=== PATIENT | female | born 1955 | race Asian ===

== ENCOUNTER 2017-10-02 17:42 | Emergency (ER) | payer MEDICARE, OTHER, MEDICAID ==
--- NOTE | 2017-10-02 19:49 | ER Document Report ---
ED NIH Stroke Scale - NIH Stroke Scale When completed:: Before Alteplase *: 1. NIH scale should be completed with appropriate accompanying assessment tools. *: 2. The NIH should reflect what the patient is capable of doing and should not be coached by the clinician. 1a. Level of Consciousness: 0=Alert;keenly responsive -: 1=Drowsy -: 2=Obtunded -: 3=Coma/unresponsive or reflex to noxious stimuli. 1a. Responses: 0 1b. Orientation Questions: a. What month is it? -: b. How old are you? -: 0=Answers both questions correctly. -: 1=Answers one question correctly or patient is intubated or has orotracheal trauma. -: 2=Answers neither question correctly. 1b. Responses: 0 1c. Response to commands: a. Open and close eyes? 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 -: Credit is given despite weakness. Demonstration of task is permitted. Substitute command if hands cannot be used. -: 0=Performs both tasks correctly -: 1=Performs one task correctly -: 2=Performs neither task correctly 1c. Responses: 0 2. Gaze: Establish eye contact and instruct patient to "Follow my finger" -: 0=Normal -: 1=Partial gaze palsy. Gaze is abnormal in one or both eyes, but where forced deviation or total gaze paresis is not present. -: 2=Forced deviation or total gaze paresis. 2. Responses: 0 3. Visual Em: Sees fingers in all four quadrants. -: 0=No visual loss. -: 1=Partial hemianopsia. -: 2=Complete hemianopsia. -: 3=Bilateral hemianopsia (including Cortical blindness) 3. Responses: 0 4. Facial Movement: Instruct patient to: -: a. Show me your teeth -: b. Raise your eyebrows -: c. Close your eyes -: d. Smile -: 0=Normal symmetrical movement -: 1=Minor paralysis (flattened nasolabial fold, asymmetry on smiling). -: 2=Partial paralysis (total or near total paralysis of lower face). -: 3=Complete paralysis of upper and lower face 4. Responses: 0 5. Motor functions (left arm): Alternate sides and extend each arm with palms down (90 degrees if sitting or 45 degrees for supine). -: 0=No drift;limb holds for full 10 seconds. -: 1=Drift; limb holds but drifts down before full 10 seconds, but does not hit bed. -: 2=Some effort against gravity; limb cannot get to or maintain position. -: 3=No effort against gravity; limb falls. -: 4=No movement. -: UN=Amputation, joint fusion, explain in comments. 5. Responses (left arm): 0 5. Motor Functions (right arm): Alternate sides and extend each arm with palms down (90 degrees if sitting or 45 degrees for supine). -: 0=No drift;limb holds for full 10 seconds. -: 1=Drift; limb holds but drifts down before full 10 seconds, but does not hit bed. -: 2=Some effort against gravity; limb cannot get to or maintain position. -: 3=No effort against gravity; limb falls. -: 4=No movement. -: UN=Amputation, joint fusion, explain in comments. 5. Responses (right arm): 0 6. Motor Functions (left leg): With patient lying supine, alternate sides and extend each leg (30 degrees always while supine). -: 0=No drift, leg holds position for full 5 seconds -: 1=Drift; leg falls before full 5 seconds but does not hit bed. -: 2=Some effort against gravity, leg falls to bed but some effort against gravity. -: 3=No effort against gravity, leg falls to bed immediately. -: 4=No movement. -: UN=Amputation, joint fusion; explain in comments. 6. Responses (left leg): 0 6. Motor Functions (right leg): With patient lying supine, alternate sides and extend each leg (30 degrees always while supine). -: 0=No drift, leg holds position for full 5 seconds -: 1=Drift; leg falls before full 5 seconds but does not hit bed. -: 2=Some effort against gravity, leg falls to bed but some effort against gravity. -: 3=No effort against gravity, leg falls to bed immediately. -: 4=No movement. -: UN=Amputation, joint fusion; explain in comments. 6. Responses (right leg): 0 7. Limb Ataxia: With eyes open instruct patient to: -: a. "Touch your finger to your nose". -: b. "Touch your heel to your love" -: 0=Absent -: 1=Present in one limb. -: 2=Present in two limbs. -: UN=Amputation or joint fusion; explain in comments. 7. Responses: 0 8. Sensory: Test sensation using pinprick or noxious stimuli. Test as many body parts as possible. -: 0=Normal;no sensory loss -: 1=Mile to moderate sensory loss (patient feels pin prick but is less sharp on affected side). -: 2=Severe or total sensory loss. 8. Responses: 1 9. Best Language: Instruct patient to: -: a. "Describe what you see in this picture." -: b. "Name the items in this picture." -: c. "Read these sentences." -: 0=No aphasia, normal -: 1=Mild to moderate aphasia. -: 2=Severe aphasia -: 3=Mute, global aphasia, no usable speech or auditory comprehension. 9. Responses: 0 10. Articulation, Dysarthia: Instruct patient to: -: "Read these words" or "Repeat these words" -: 0=Normal -: 1=Mild to moderate; patient may slur some words but can be understood without difficulty. -: 2=Severe; patients speech so slurred as to be unintelligible in the absence of dysphasia. -: UN=Intubated or other physical barrier, explain in comments. 10. Responses: 0 11. Extinction or inattention: 0=No abnormality -: 1= Visual, tactile, auditory, spatial, or personal inattention or extinction to bilateral simulation in one or the sensory modalities. -: 2=Profound isaac-inattention or isaac-inattention to more than one modality; does not recognize own hand. 11. Responses: 0 Total Score: 1
--- NOTE | 2017-10-02 19:52 | ER Document Report ---
ED Neuro Symptoms/Deficit - General Chief Complaint: Leg Pain Stated Complaint: BODY NUMBNESS/CHEST PAIN Time Seen by Provider: 10/02/17 19:45 Notes: 62-year-old female presents with left-sided numbness and sharp chest pain starting 2 weeks ago. She has had this fairly consistent on and off for the last 2 weeks. She has spoke with her doctor. Patient is not a very good historian and is all over the board when trying to pin her down on some of his questions she complains of left face numbness left arm numbness left leg numbness but states it is due to her sciatic nerve. She also is a sharp stabbing chest pain but denies shortness of breath. TRAVEL OUTSIDE OF THE [place] IN LAST 30 DAYS: No - Related Data Allergies/Adverse Reactions: acetaminophen [From Vicodin] Allergy (Verified 10/02/17 19:43) clams Allergy (Verified 10/02/17 19:44) hydrocodone [From Vicodin] Allergy (Verified 10/02/17 19:43) propoxyphene [From Darvocet-N] Allergy (Verified 10/02/17 19:43) Past Medical History - Social History Smoking Status: Unknown if Ever Smoked Family History: None Physical Exam - Vital signs Vitals: Temp Pulse Resp BP Pulse Ox 98.6 F 84 18 133/65 H 98 10/02/17 18:01 10/02/17 18:01 10/02/17 18:01 10/02/17 18:01 10/02/17 18:01 - Neurological Neuro grossly intact: Yes Cognition: Normal Orientation: AAOx4 [place] Coma Scale Eye Opening: Spontaneous [place] Coma Scale Verbal: Oriented [place] Coma Scale Motor: Obeys Commands [place] Coma Scale Total: 15 Speech: Normal Cranial nerves: Normal Cerebellar coordination: Normal Motor strength normal: LUE, RUE, LLE, RLE 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 Also complains of sharp chest pain. Will do a full stroke and chest pain workup. Again this is been going on for 2 weeks she is not a candidate for TPA due to timing. She is an extraordinarily poor historian and hard to focus with her complaints. - Vital Signs Vital signs: Temp Pulse Resp BP Pulse Ox 98.6 F 84 18 133/65 H 98 10/02/17 18:01 10/02/17 18:01 10/02/17 18:01 10/02/17 18:01 10/02/17 18:01
--- NOTE | 2017-10-02 20:31 | EKG REPORT ---
SEVERITY:- ABNORMAL ECG - SINUS RHYTHM RBBB AND LAFB : Confirmed by: Jason Preston MD 02-Oct-2017 20:30:35
--- NOTE | 2017-10-02 21:14 | RADIOLOGY REPORT (SQ) ---
EXAM DESCRIPTION: CHEST SINGLE VIEW COMPLETED DATE/TIME: 10/02/2017 9:01 pm REASON FOR STUDY: left side numbness COMPARISON: None. EXAM PARAMETERS: NUMBER OF VIEWS: One view. TECHNIQUE: Single frontal radiographic view of the chest acquired. RADIATION DOSE: NA LIMITATIONS: None. FINDINGS: LUNGS AND PLEURA: No opacities, masses or pneumothorax. No pleural effusion. MEDIASTINUM AND HILAR STRUCTURES: No masses. Contour normal. HEART AND VASCULAR STRUCTURES: Heart normal in size. Normal vasculature. BONES: No acute findings. HARDWARE: None in the chest. OTHER: No other significant finding. IMPRESSION: NO ACUTE RADIOGRAPHIC FINDING IN THE CHEST. TECHNICAL DOCUMENTATION: JOB ID: [id number] [employer]- All Rights Reserved Reading location - IP/workstation name: [email or web address]
[2017-10-02 21:17] LABS: APPEARANCE,URINE CLEAR; BILIRUBIN,URINE NEGATIVE (NEGATIVE); COLOR,URINE STRAW; GLUCOSE, URINE NEGATIVE (NEGATIVE); KETONES,URINE NEGATIVE (NEGATIVE); LEUKOCYTE ESTERASE,URINE NEGATIVE (NEGATIVE); NITRITE,URINE NEGATIVE (NEGATIVE); PROTEIN,URINE NEGATIVE (NEGATIVE); URINE SPECIFIC GRAVITY 1.008; UROBILINOGEN,URINE NEGATIVE mg/dL (<2.0)
--- NOTE | 2017-10-02 21:52 | ER Document Report ---
ED General - General Chief Complaint: Leg Pain Stated Complaint: BODY NUMBNESS/CHEST PAIN Time Seen by Provider: 10/02/17 19:45 Notes: Patient is a 62-year-old female with a past medical history of hypertension who presents with 3 weeks of intermittent left-sided numbness that has become constant over the last 3 days. She describes this as a sensation of numbness and loss of sensation most prominent in her left lower extremity. Nothing seems to improve or worsen her symptoms. She does note that the loss of sensation has made ambulation difficult. She denies any focal weakness, headache, neck pain, changes in vision, difficulty speaking, vomiting, or confusion. She denies any history of similar symptoms in the past. She has not seen her general doctor regarding today's concerns that she is currently visiting from out of town. The patient also reports that she has had intermittent stabbing chest discomfort over the past several weeks. No pain present at the time of my assessment. She notes that this is intermittent, stabbing pain that comes for several seconds and then spontaneously resolves. Nothing seemed to trigger the pain. She denies any history of similar symptoms in the past. She denies any cardiac history. Denies any associated shortness of breath. No history of DVT or pulmonary embolus. TRAVEL OUTSIDE OF THE [place] IN LAST 30 DAYS: No - Related Data Allergies/Adverse Reactions: acetaminophen [From Vicodin] Allergy (Verified 10/02/17 19:43) clams Allergy (Verified 10/02/17 19:44) hydrocodone [From Vicodin] Allergy (Verified 10/02/17 19:43) propoxyphene [From Darvocet-N] Allergy (Verified 10/02/17 19:43) Past Medical History - General Information source: Patient - Social History Smoking Status: Never Smoker Frequency of alcohol use: None Drug Abuse: None Lives with: Family Family History: Reviewed & Not Pertinent Patient has suicidal ideation: No Patient has homicidal ideation: No Endocrine Medical History: Reports: Hx Diabetes Mellitus Type 2 Renal/ Medical History: Denies: Hx Peritoneal Dialysis Past Surgical History: Reports: Hx Orthopedic Surgery - carpal tunnel Review of Systems - Review of Systems Notes: Constitutional: Negative for fever. HENT: Negative for sore throat. Eyes: Negative for visual changes. Cardiovascular: Positive for chest pain. Respiratory: Negative for shortness of breath. Gastrointestinal: Negative for abdominal pain, vomiting or diarrhea. Genitourinary: Negative for dysuria. Musculoskeletal: Negative for back pain. Skin: Negative for rash. Neurological: Positive for left-sided numbness 10 point ROS negative except as marked above and in HPI. Physical Exam - Vital signs Vitals: Temp Pulse Resp BP Pulse Ox 98.6 F 84 18 133/65 H 98 10/02/17 18:01 10/02/17 18:01 10/02/17 18:01 10/02/17 18:01 10/02/17 18:01 Interpretation: Normal Notes: PHYSICAL EXAMINATION: GENERAL: Well-appearing, well-nourished and in no acute distress. HEAD: Atraumatic, normocephalic. EYES: Pupils equal round and reactive to light, extraocular movements intact, sclera anicteric, conjunctiva are normal. ENT: nares patent, oropharynx clear without exudates. Moist mucous membranes. NECK: Normal range of motion, supple without lymphadenopathy LUNGS: Breath sounds clear to auscultation bilaterally and equal. No wheezes rales or rhonchi. HEART: Regular rate and rhythm without murmurs ABDOMEN: Soft, nontender, normoactive bowel sounds. No guarding, no rebound. No masses appreciated. EXTREMITIES: Normal range of motion, no pitting or edema. No cyanosis. NEUROLOGICAL: Face symmetric. Tongue protrudes midline. Extraocular motions intact. Pupils are 2 mm and equally reactive. Normal speech, normal gait. 5 out of 5 strength in both the distal and proximal upper and lower extremities bilaterally. Sensation is grossly intact throughout although slightly diminished in the left lower extremity. Finger to nose testing normal. Pronator drift normal. PSYCH: Normal mood, normal affect. SKIN: Warm, Dry, normal turgor, no rashes or lesions noted. Course - Re-evaluation Re-evalutation: 10/02/17 21:50 Patient presents complaining of left-sided numbness for the past 3 days that has become to a point of intensity that it makes walking difficult. Full neurologic exam at the bedside is without any significant deficits although the patient does have some apparent sensory loss in her left lower extremity. She has no strength deficits. No ataxia. No aphasia or dysarthria. Will obtain MRI of the head to further evaluate for possible subacute stroke. The patient was also complaining of some intermittent stabbing chest discomfort that has been going on for the past several days. She denies any chest pain at the time of my assessment. Low clinical suspicion for ACS given clinical history, exam, EKG without ST elevations or depressions, and negative initial troponin. HEART score less than or equal to 3. PE also seems unlikely given clinical history, absence of tachycardia or dyspnea. CXR without evidence of pneumothorax or pneumonia. No widened mediastinum. Aortic dissection also seems unlikely given history, symmetric pulses, CXR, and vitals. 10/03/17 00:19 MRI of the head does show a meningioma between the frontal lobes as well as a prior right basal ganglia infarct. The patient has been having intermittent symptoms for 3 weeks that became constant in the last several days it is possible that the right basal ganglia infarct could be triggering some of her left-sided numbness. I have informed the patient and her daughter about the MRI findings and have encouraged them to follow-up with [facility] primary care doctor and consideration of neurosurgical follow-up. Labs including troponin are otherwise unremarkable. At this time will discharge with return precautions and follow-up recommendations. Verbal discharge instructions given a the bedside and opportunity for questions given. Medication warnings reviewed. Patient is in agreement with this plan and has verbalized understanding of return precautions and the need for primary care follow-up in the next 24-72 hours. - Vital Signs Vital signs: Temp Pulse Resp BP Pulse Ox 98.3 F 79 19 133/74 H 100 10/03/17 01:01 10/02/17 19:50 10/03/17 01:01 10/03/17 01:01 10/03/17 01:01 - Laboratory Result Diagrams: 10/02/17 21:38 10/02/17 21:38 Laboratory results interpreted by me: 10/02/17 10/02/17 20:21 21:38 Potassium 5.1 H Glucose 156 H AST 61 H Total Protein 8.3 H Urine Ascorbic Acid 40 H - Diagnostic Test Radiology reviewed: Image reviewed, Reports reviewed Radiology results interpreted by me: 10/03/17 00:23 Chest x-ray: No acute infiltrate or pneumothorax Discharge - Discharge Clinical Impression: Left sided numbness, Intermittent chest pain Condition: Good Disposition: HOME, SELF-CARE Additional Instructions: You were seen today for left-sided numbness. An MRI of your head shows an area of an old stroke but also does show what appears to be a meningioma, a generally benign tumor between your 2 frontal lobes. This could also be contributing to some of your symptoms. The remainder of your labs including markers for your heart are normal. I would recommend that you follow-up closely with your primary care physician within the next 24-48 hours and request a neurosurgical consultation. Please return to the emergency department immediately if you develop a severe headache, weakness, worsening of your numbness, difficulty walking, vomiting, confusion, recurrent chest pain, fever of greater than 100.4 F, or any other symptoms that are worrisome to you.
[2017-10-02 21:54] LABS: ABSOLUTE BASOPHILS # (AUTO) 0.1 10^3/uL (0.0-0.2); ABSOLUTE EOSINOPHILS # (AUTO) 0.1 10^3/uL (0.0-0.6); ABSOLUTE LYMPHOCYTES (AUTO) 2.1 10^3/uL (0.5-4.7); ABSOLUTE MONOCYTES (AUTO) 0.6 10^3/uL (0.1-1.4); ABSOLUTE NEUT (AUTO) 4.9 10^3/uL (1.7-8.2); BASOPHILS % (AUTO) 0.8 % (0-2); EOSINOPHILS % (AUTO) 1.2 % (0-6); HEMATOCRIT 39.2 % (36.0-47.0); HEMOGLOBIN 13.3 g/dL (12.0-15.5); LYMPHOCYTES % (AUTO) 27.1 % (13-45); MEAN CORPUSCULAR HEMOGLOBIN 28.5 pg (27.0-33.4); MEAN CORPUSCULAR HGB CONC 33.9 g/dL (32.0-36.0); MEAN CORPUSCULAR VOLUME 84 fl (80-97); MONOCYTES % (AUTO) 7.3 % (3-13); PLATELET COUNT 220 10^3/uL (150-450); RED BLOOD COUNT 4.66 10^6/uL (3.72-5.28); RED CELL DISTRIBUTION WIDTH 12.1 % (11.5-14.0); SEGMENTED NEUTROPHILS % (AUTO) 63.6 % (42-78); TOTAL CELLS COUNTED % (AUTO) 100 %; WHITE BLOOD COUNT 7.8 10^3/uL (4.0-10.5)
[2017-10-02 22:08] LABS: ALANINE AMINOTRANSFERASE 24 U/L (9-52); ALBUMIN 4.5 g/dL (3.5-5.0); ALKALINE PHOSPHATASE 79 U/L (38-126); ANION GAP 13 (5-19); ASPARTATE AMINO TRANSFERASE 61 U/L (14-36); BILIRUBIN,DIRECT 0.4 mg/dL (0.0-0.4); BILIRUBIN,TOTAL 0.5 mg/dL (0.2-1.3); BLOOD UREA NITROGEN 15 mg/dL (7-20); CALCIUM 9.8 mg/dL (8.4-10.2); CARBON DIOXIDE 26 mmol/L (22-30); CHLORIDE 104 mmol/L (98-107); GLUCOSE 156 mg/dL (75-110); POTASSIUM 5.1 mmol/L (3.6-5.0); SODIUM 142.6 mmol/L (137-145); TOTAL PROTEIN 8.3 g/dL (6.3-8.2)
--- NOTE | 2017-10-02 23:50 | RADIOLOGY REPORT (SQ) ---
EXAM DESCRIPTION: CT HEAD WITHOUT IV CONTRAST COMPLETED DATE/TME: 10/02/2017 20:45 CLINICAL HISTORY: 62 years, Female, eval cva COMPARISON: EXAM DESCRIPTION: CLINICAL HISTORY: eval cva / stroke COMPARISON: None available. TECHNIQUE: Multiplanar multisequence imaging of the brain including the intravenous administration of contrast. FINDINGS: There is a fairly homogeneously enhancing apparently extra-axial dural based mass lesion displacing the bilateral medial inferior frontal lobe parenchyma superiorly without significant surrounding edema. This enhancing mass lesion measures 31 mm transverse by 18 mm craniocaudal and is most consistent with meningioma. Patient motion limits detail. There is no acute ischemia identified. Encephalomalacia involves the right basal ganglia and fernández radiata and internal capsule. No other focal pathologic enhancement.. There is no additional evidence of acute mass, mass effect, midline shift or hemorrhage. No focal abnormal extra-axial fluid collection is seen. IMPRESSION: Findings are most consistent with a meningioma displacing the frontal lobes. No evidence of acute ischemia. There is however evidence of prior insult in the region of the right basal ganglia.
[2017-10-03 02:00] VITALS: BP 133/74
== END 2017-10-03 01:14 | disposition home or self-care (01) ==
LOC: ER 17:42
DX: R20.0 Anesthesia of skin (principal); D32.0 Benign neoplasm of cerebral meninges; R26.2 Difficulty in walking, not elsewhere classified; R07.9 Chest pain, unspecified; E11.9 Type 2 diabetes mellitus without complications; I10 Essential (primary) hypertension; Z86.73 Personal history of transient ischemic attack (TIA), and cerebral infarction without residual deficits; Z88.6 Allergy status to analgesic agent; Z88.5 Allergy status to narcotic agent; Z91.013 Allergy to seafood
CPT/HCPCS: 36415; 70551; 71045; 80053; 81001; 84484; 85025; 93005; 93010; 99284